=== PATIENT | male | born 1965 | race Caucasian/White ===

== ENCOUNTER 2016-07-05 04:17 | Emergency (ER) | payer OTHER ==
[2016-07-05 05:11] LABS: BASOPHIL % 0.6 % (0-2); PLATELET COUNT 274 x10^3mcL (130-400)
[2016-07-05 05:17] LABS: CALCIUM 8.2 mg/dL (8.5-10.1); CARBON DIOXIDE 25.2 mmol/L (21-32); CHLORIDE SERUM 109 mmol/L (98-107); GFR1 > 60 mL/min; GLUCOSE SERUM 165 mg/dL (74-106); POTASSIUM SERUM 3.1 mmol/L (3.5-5.1); SODIUM SERUM 143 mmol/L (136-145)
[2016-07-05 05:19] LABS: RED CELL DISTRIBUTION WIDTH 17.8 % (11.5-14.5)
[2016-07-05 08:31] VITALS: BP 128/78
== END 2016-07-05 08:31 | disposition home or self-care (01) ==
LOC: ED 04:17
PROVIDERS: Emergency Medicine
DX: M25.512 Pain in left shoulder (principal); R07.89 Other chest pain; D64.9 Anemia, unspecified; E87.6 Hypokalemia; G89.29 Other chronic pain; M54.2 Cervicalgia; I42.9 Cardiomyopathy, unspecified; F17.200 Nicotine dependence, unspecified, uncomplicated; F15.90 Other stimulant use, unspecified, uncomplicated
CPT/HCPCS: J1885; Q0092

== ENCOUNTER 2016-08-30 11:14 | Emergency (ER) | payer OTHER ==
[~2016-08-30] VITALS: Ht 180.3 cm; Wt 90.7 kg
[2016-08-30 12:04] LABS: BASOPHIL % 0.5 % (0-2); PLATELET COUNT 315 x10^3mcL (130-400)
[2016-08-30 12:06] LABS: UA SPECIFIC GRAVITY 1.025 (1.005-1.035); microscopic required? YES; urine erythrocyte 3+ (NEGATIVE)
[2016-08-30 12:07] LABS: RED CELL DISTRIBUTION WIDTH 18.5 % (11.5-14.5)
[2016-08-30 12:32] LABS: CALCIUM 8.3 mg/dL (8.5-10.1); CARBON DIOXIDE 25.8 mmol/L (21-32); CHLORIDE SERUM 103 mmol/L (98-107); GFR1 > 60 mL/min; GLUCOSE SERUM 150 mg/dL (74-106); POTASSIUM SERUM 3.3 mmol/L (3.5-5.1); SODIUM SERUM 142 mmol/L (136-145)
[2016-08-30 12:37] LABS: ALKALINE PHOSPHATASE 196 U/L (46-116); ALT/SGPT 40 U/L (16-63); AMYLASE 52 U/L (25-115); AST/SGOT 49 U/L (15-37); BILIRUBIN TOTAL 0.2 mg/dL (0.20-1.00); LIPASE 168 IU/L (73-393); TOTAL PROTEIN, SERUM 6.8 g/dL (6.4-8.2)
[2016-08-30 17:22] VITALS: BP 144/45
== END 2016-08-30 16:28 | disposition home or self-care (01) ==
LOC: ED 11:14
PROVIDERS: Emergency Medicine
DX: N13.2 Hydronephrosis with renal and ureteral calculous obstruction (principal); I50.9 Heart failure, unspecified
CPT/HCPCS: J1885; J2405; J3010; J7030; Q9967

== ENCOUNTER 2017-06-05 05:01 | Inpatient (IN) | payer OTHER ==
[~2017-06-05] VITALS: Ht 177.8 cm; Wt 91.4 kg
[2017-06-05 05:05] VITALS: Ht 177.8 cm; Wt 91.4 kg
[2017-06-05 06:50] LABS: BASOPHIL % 0.1 % (0-2); PLATELET COUNT 313 x10^3mcL (130-400)
[2017-06-05 06:59] LABS: RED CELL DISTRIBUTION WIDTH 18.5 % (11.5-14.5)
[2017-06-05 07:03] LABS: CALCIUM 8.6 mg/dL (8.5-10.1); CARBON DIOXIDE 29.3 mmol/L (21-32); CHLORIDE SERUM 106 mmol/L (98-107); CREATININE SERUM 0.8 mg/dL (0.7-1.3); GFR1 > 60 mL/min; GLUCOSE SERUM 100 mg/dL (74-106); POTASSIUM SERUM 5.1 mmol/L (3.5-5.1); SODIUM SERUM 142 mmol/L (136-145)
[2017-06-05 07:05] LABS: rbc morphology (normal/abnorm) ABNORMAL (NORMAL)
[2017-06-05 07:08] LABS: ALKALINE PHOSPHATASE 122 U/L (46-116); ALT/SGPT 32 U/L (16-63); AST/SGOT 25 U/L (15-37); BILIRUBIN TOTAL 0.2 mg/dL (0.20-1.00)
[2017-06-05 07:12] LABS: ALBUMIN 2.9 g/dL (3.4-5.0)
[2017-06-05 10:49] VITALS: BP 120/69
[2017-06-05 11:07] LABS: T3 TOTAL 0.85 ng/mL
[2017-06-05 12:28] LABS: CHOLESTEROL/HDL RATIO 3.4; MAGNESIUM 2.2 mg/dL (1.8-2.4); PHOSPHOROUS 4.3 mg/dL (2.5-4.9)
[2017-06-05 12:44] LABS: FREE T4 0.77 ng/dL (0.76-1.46); T4(THYROXINE) 5.9 ug/dL (4.7-13.3)
[2017-06-05 16:36] LABS: UA SPECIFIC GRAVITY 1.025 (1.005-1.035); microscopic required? YES; urine erythrocyte 2+ (NEGATIVE)
[2017-06-05 16:46] LABS: AMPHETAMINE QUAL UR NONE DETECTED (NEG <=1000)
[2017-06-05 17:12] LABS: RED BLOOD CELLS 4.2 M/mm3 (4.52-5.90)
[2017-06-05 18:05] VITALS: BP 118/62
[2017-06-05 20:06] VITALS: BP 125/72
[2017-06-05 22:31] LABS: IRON 38 ug/dL (65-170); TOTAL IRON BINDING CAPACITY 365 ug/dL (250-450)
[2017-06-06 06:15] VITALS: BP 133/87
[2017-06-06 06:29] LABS: BASOPHIL % 0.3 % (0-2); PLATELET COUNT 304 x10^3mcL (130-400)
[2017-06-06 06:37] LABS: CALCIUM 8.3 mg/dL (8.5-10.1); CARBON DIOXIDE 27.3 mmol/L (21-32); CHLORIDE SERUM 106 mmol/L (98-107); CREATININE SERUM 0.8 mg/dL (0.7-1.3); GFR1 > 60 mL/min; GLUCOSE SERUM 106 mg/dL (74-106); POTASSIUM SERUM 4.2 mmol/L (3.5-5.1); SODIUM SERUM 141 mmol/L (136-145)
[2017-06-06 07:18] LABS: RED CELL DISTRIBUTION WIDTH 18.3 % (11.5-14.5)
[2017-06-06 07:20] LABS: rbc morphology (normal/abnorm) ABNORMAL (NORMAL)
[2017-06-06 09:57] VITALS: BP 120/74
[2017-06-06] MEDS ORDERED: LISINOPRIL10 MG PO (11:26)
[2017-06-06] MEDS ORDERED: GLU500 PO (11:27)
[2017-06-06] MEDS ORDERED: PRI20 PO (11:28)
[2017-06-06] MEDS ORDERED: SERTRALINE50 M1 PO (11:29)
[2017-06-06] MEDS ORDERED: ECO81 PO (11:30)
[2017-06-06] MEDS ORDERED: ATORVASTATIN CA40 M1 PO (11:30)
[2017-06-06] MEDS ORDERED: FER300 PO (11:31)
[2017-06-06] MEDS ORDERED: FOLBIC RF1 TAB PO (11:39)
[2017-06-06 12:00] VITALS: BP 120/74
== END 2017-06-06 12:40 | disposition home or self-care (01) | DRG 243 ==
LOC: ED 05:01 → DU 09:29
PROVIDERS: Emergency Medicine; Family Medicine
DX: K21.9 Gastro-esophageal reflux disease without esophagitis (principal); N17.0 Acute kidney failure with tubular necrosis; E44.0 Moderate protein-calorie malnutrition; F17.210 Nicotine dependence, cigarettes, uncomplicated; D50.9 Iron deficiency anemia, unspecified; N20.0 Calculus of kidney; E78.5 Hyperlipidemia, unspecified; F19.188 Other psychoactive substance abuse with other psychoactive substance-induced disorder; F90.9 Attention-deficit hyperactivity disorder, unspecified type; G89.29 Other chronic pain; M25.561 Pain in right knee; M54.2 Cervicalgia; Z90.89 Acquired absence of other organs; I25.2 Old myocardial infarction; Z98.1 Arthrodesis status; Z59.0 Homelessness; Z80.9 Family history of malignant neoplasm, unspecified; Z68.28 Body mass index [BMI] 28.0-28.9, adult
CPT/HCPCS: 82962; 83880; 84439; J1885; J7030; Q0092